=== PATIENT | male | born 1965 | race American Indian/Alaskan Native ===

== ENCOUNTER 2020-01-23 12:17 | Emergency (ER) | payer SELFPAY ==
[2020-01-23 14:35] VITALS: BP 180/94
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
[2020-01-23] MEDS ORDERED: NAPROXEN 500 MG TAB PO ONE (15:43)
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
== END 2020-01-23 16:50 | disposition home or self-care (01) ==
LOC: ED 12:17
DX: S39.012A Strain of muscle, fascia and tendon of lower back, initial encounter (principal); I11.0 Hypertensive heart disease with heart failure; I50.9 Heart failure, unspecified; Z98.890 Other specified postprocedural states; V89.2XXA Person injured in unspecified motor-vehicle accident, traffic, initial encounter; Y93.89 Activity, other specified; Y92.89 Other specified places as the place of occurrence of the external cause; Y99.8 Other external cause status
CPT/HCPCS: 72100; 99283